=== PATIENT | female | born 1950 | race Caucasian/White ===

== ENCOUNTER 2024-05-14 06:22 | Day surgery (SDC) | payer OTHER ==
[2024-05-12 14:45] VITALS: BMI 24.1
[2024-05-14] MEDS ORDERED: MIDAZOLAM HCL 2 MG/2 ML SINGLE DOSE VIAL ONE (07:08)
[2024-05-14] MEDS ORDERED: PROPOFOL 20 ML ONE ×3 (07:08→08:36)
[2024-05-14] MEDS ORDERED: BUPIVACAINE HCL/PF 2.5 MG/ML - 30 ML VIAL IJ ONE (07:13)
[2024-05-14] MEDS ORDERED: DEXAMETHASONE SOD PHOSPHATE 4 MG/1 ML VIAL ONE (07:53)
[2024-05-14] MEDS ORDERED: ceFAZolin SODIUM 1 GM VIAL ONE (07:53)
[2024-05-14] MEDS ORDERED: ONDANSETRON 4 MG/2 ML VIAL ONE ×2 (07:53→08:48)
[2024-05-14] MEDS: BUPIVACAINE HCL/PF 0.25% (2.5MG/ML) 10 ML VIAL IJ ONE (08:01)
[2024-05-14] MEDS ORDERED: ONDANSETRON 4 MG/2 ML VIAL IVPUSH PRN (09:05)
[2024-05-14] MEDS: ACETAMINOPHEN 1000 MG/100 ML BAG IVPB ONE (09:10)
[2024-05-14] MEDS ORDERED: LACTATED RINGERS SOLUTION 1,000 ML IV SCH (09:15)
[2024-05-14] MEDS ORDERED: FENTANYL CITRATE/PF 50 MCG/ML VIAL ONE (09:25)
[2024-05-14] MEDS ORDERED: CEFAZOLIN SODIUM 2 GM in DEXTROSE 5%-WATER 100 ML IVPB ONE (09:38)
[2024-05-14 09:53] VITALS: RESP 18; TEMP 97
[2024-05-14] MEDS: oxyCODONE HCL 5 MG TABLET PO PRN (10:00)
[2024-05-14] MEDS ORDERED: oxyCODONE HCL 5 MG TABLET ONE (10:02)
[2024-05-14 10:44] VITALS: BP 132/68; PULSE 78
== END 2024-05-14 10:40 | disposition home or self-care (01) ==
LOC: FASU 06:22
PROVIDERS: ATTEND Orthopaedic Surgery
PROC: 0SQD4ZZ Repair Left Knee Joint, Percutaneous Endoscopic Approach (ICD-10-PCS; principal; 2024-05-14 08:01)
DX: S83.232A Complex tear of medial meniscus, current injury, left knee, initial encounter (principal); X58.XXXA Exposure to other specified factors, initial encounter; Y93.9 Activity, unspecified; Y92.9 Unspecified place or not applicable
CPT/HCPCS: 94760; 97116-GP; C1713; J0131